=== PATIENT | male | born 1950 | race Caucasian/White ===

== ENCOUNTER 2022-04-16 18:03 | Emergency (ER) | payer MEDICARE, OTHER ==
[2022-04-16 19:23] LABS: BILIRUBIN NEGATIVE (NEGATIVE); BLOOD 1+ Ery/uL (NEGATIVE); CLARITY CLEAR (CLEAR); COLOR YELLOW (YELLOW); GLUCOSE (U) NORMAL (NORMAL); LEUKOCYTES NEGATIVE Leu/uL (NEGATIVE); NITRITE NEGATIVE (NEGATIVE); PROTEIN TRACE (LOW) mg/dL (NEGATIVE); UROBILINOGEN 0.2 mg/dL (0.2-1.0); pH 7.5 (5.0-9.0)
[2022-04-16 19:25] LABS: BARBITURATES NEGATIVE (NEGATIVE); ECSTASY (MDMA) NEGATIVE (NEGATIVE); MARIJUANA (THC) NEGATIVE (NEGATIVE); METHADONE NEGATIVE (NEGATIVE); OPIATES NEGATIVE (NEGATIVE)
[2022-04-16 19:26] LABS: AMPHETAMINES NEGATIVE (NEGATIVE); OXYCODONE NEGATIVE (NEGATIVE)
[2022-04-16 19:38] LABS: BACTERIA TRACE; URINARY RBC RARE; URINARY WBC RARE
[2022-04-16 19:44] LABS: BASOPHIL 0.4 % (0-2); EOSINOPHIL 0.5 % (0-7); HCT 38.4 % (42.0-52.0); HGB 12.1 g/dl (13.2-18.0); LYMPHOCYTE 27.1 % (15-48); MCH 23.8 pg (25.0-31.0); MCHC 31.5 g/dL (32.0-36.0); MCV 75.6 fL (78.0-100.0); MPV 9.1 fL (6.0-9.5); NEUTROPHIL 61.7 % (41-80); NRBC 0; PLT 398 K/uL (150-400); RBC 5.08 M/uL (4.70-6.00); RDW 16.1 % (11.5-14.0); WBC 7.3 K/uL (4.0-10.5)
[2022-04-16 20:01] LABS: ALBUMIN 3.1 g/dL (3.4-5.0); BILIRUBIN - TOTAL 0.4 mg/dL (0.2-1.0); BUN/CREAT RATIO (CALC) 9.5 RATIO; CREATININE 0.74 mg/dL (0.67-1.17); GLOBULIN (CALCULATION) 5.9 g/dL; POTASSIUM 3.4 mmol/L (3.5-5.1)
== END 2022-04-16 22:23 | disposition home or self-care (01) ==
LOC: FER 18:03
PROVIDERS: Emergency Medicine
DX: F11.23 Opioid dependence with withdrawal (principal); R55 Syncope and collapse; I10 Essential (primary) hypertension; J44.9 Chronic obstructive pulmonary disease, unspecified; E11.9 Type 2 diabetes mellitus without complications; F17.200 Nicotine dependence, unspecified, uncomplicated; Z79.84 Long term (current) use of oral hypoglycemic drugs; Z79.899 Other long term (current) drug therapy
CPT/HCPCS: 36415; 70450; 71045; 72128; 72131; 80053; 80305; 81001; 84484; 85025; 93005; J1885

== ENCOUNTER 2022-04-17 06:14 | Emergency (ER) | payer MEDICARE, OTHER ==
[2022-04-17 06:52] LABS: BASOPHIL 0.4 % (0-2); EOSINOPHIL 0.9 % (0-7); HCT 38.4 % (42.0-52.0); HGB 12.4 g/dl (13.2-18.0); LYMPHOCYTE 25.9 % (15-48); MCH 24.4 pg (25.0-31.0); MCHC 32.3 g/dL (32.0-36.0); MCV 75.4 fL (78.0-100.0); MONOCYTE 10.9 % (0-12); MPV 8.8 fL (6.0-9.5); NEUTROPHIL 61.5 % (41-80); NRBC 0; PLT 391 K/uL (150-400); RBC 5.09 M/uL (4.70-6.00); RDW 15.9 % (11.5-14.0); WBC 7.4 K/uL (4.0-10.5)
[2022-04-17 07:09] LABS: BILIRUBIN - TOTAL 0.4 mg/dL (0.2-1.0); BUN/CREAT RATIO (CALC) 10.3 RATIO; CREATININE 0.78 mg/dL (0.67-1.17); GLOBULIN (CALCULATION) 5.6 g/dL; POTASSIUM 3.5 mmol/L (3.5-5.1); TOTAL PROTEIN 8.6 g/dL (6.4-8.2)
== END 2022-04-17 07:24 | disposition home or self-care (01) ==
LOC: FER 06:14
PROVIDERS: Internal Medicine
DX: K42.9 Umbilical hernia without obstruction or gangrene (principal); I25.2 Old myocardial infarction; J44.9 Chronic obstructive pulmonary disease, unspecified; F17.210 Nicotine dependence, cigarettes, uncomplicated
CPT/HCPCS: 36415; 80053; 83690; 85025; J1885